=== PATIENT | female | born 1945 | race Caucasian/White ===

== ENCOUNTER 2018-12-17 07:04 | Day surgery (SDC) | payer MEDICARE ==
[2018-12-13 13:47] VITALS: BP 147/78
[2018-12-13 13:50] LABS: BASOPHILS % (AUTO) 0.8 % (0.0-5.0); HEMATOCRIT 45.9 % (36-48); MEAN CORPUSCULAR HEMOGLOBIN 28.7 pg (27.0-33.0); MEAN CORPUSCULAR HGB CONC 33.1 g/dL (32.0-36.0); MEAN CORPUSCULAR VOLUME 86.9 fL (79-99); MONOCYTES % (AUTO) 8.1 % (3.0-13.0); NEUTROPHILS % (AUTO) 70.1 % (40.0-77.0); PLATELET COUNT (AUTO) 246 K/uL (130-400); RED BLOOD CELL COUNT(AUTO) 5.28 MIL/uL (4.00-5.50); RED CELL DISTRIBUTION WIDTH 14.2 % (11.0-15.5); WHITE BLOOD COUNT (AUTO) 6.3 K/uL (4.8-10.8)
[2018-12-13 13:57] LABS: CREATININE 0.7 mg/dL (0.5-1.5); POTASSIUM 4.4 mmol/L (3.5-5.1)
[2018-12-13 14:01] LABS: INR 1.28 (0.85-1.15); PARTIAL THROMBOPLASTIN TIME 44.5 SEC (26.3-35.5); PROTHROMBIN TIME 13.4 SEC (9.6-11.6)
[~2018-12-17] VITALS: Ht 149.9 cm; Wt 89.9 kg
[2018-12-17] VITALS (15 sets, daily range): BP systolic 117–135; BP diastolic 44–88
[~2018-12-17 07:04] MED LIST: DIGO125T87 PO; DRON400T2 PO; DULO60CA63 PO; EMPA25TA PO; LEVO75TA10 PO; METF-444 PO; METO-391 PO; MIRT15TA6 PO; MONT10TA24 PO; OMEP40CA37 PO; RIVA20TA PO; ROSU20TA23 PO
[2018-12-17] MEDS ORDERED: SODIUM CHLORIDE 0.9% 1000ML 1,000 ML IV ONE (07:27)
[2018-12-17] MEDS ORDERED: SUCCINYLCHOLINE CHLORIDE 20 MG/ML 10 ML VIAL ONE (08:54)
[2018-12-17] MEDS ORDERED: PROPOFOL 10 MG/ML 20ML VIAL IV ONE (08:54)
[2018-12-17] MEDS ORDERED: LIDOCAINE HCL-MPF 2% 5ML VIAL ONE (08:55)
--- NOTE | 2018-12-17 09:30 | NUR ---
CARDIOVERSION WITH ANESTHESIA TIME OUT AT 930. CARLO GLASS CRNA, SCOOBY,RN, HOWIE,DONAVAN AND MYSELF IN ROOM. ANESTHESIA START TIME 0932. SHOCK OF [address] FERRARI X1 ATTEMPT AT 0934. PT CONVERTED TO SINUS RHYTHM. PT TOLERATED PROCEDURE WELL. PLS SEE RECOVERY TOOL. ROPER OPERATOR OUT OF ROOM AT 0945. DR. FERRARI TALKED TO PT'S POST PROCEDURE.
--- NOTE | 2018-12-17 09:50 | NUR ---
DIET PER DR. FERRARI, PT GHULAM EAT. Addendum: 12/17/18 at 1133 by YUDY VO RN RN CON'T WHEN FULLY AWAKE.
--- NOTE | 2018-12-17 10:45 | NUR ---
DISCHARGE PT DISCHARGED VIA WHEELCHAIR WITH . PT STABLE. AWAKE ALERT ORIENTED X3. NO COMPLAINTS MADE. NOT IN ANY APPARENT DISTRESS. TOLERATED ORAL FLUIDS, JELLO, CRACKERS WELL. VOIDED PRIOR TO DISCHARGE. DISCHARGE INSTRUCTIONS GIVEN TI , VERBALIZED UNDERSTANDING.
== END 2018-12-17 10:45 | disposition home or self-care (01) ==
LOC: DAH 07:04
PROVIDERS: ATTEND Internal Medicine Cardiovascular Disease
DX: I48.1 Persistent atrial fibrillation (principal); Z85.3 Personal history of malignant neoplasm of breast; Z79.01 Long term (current) use of anticoagulants; Z79.899 Other long term (current) drug therapy; Z68.43 Body mass index [BMI] 50.0-59.9, adult; Z98.890 Other specified postprocedural states
CPT/HCPCS: 36415; 80048; 82948 ×2; 85025; 85610; 85730; 92960; 93005 ×2; A4606; J0330; J2704; J3490; J7030; 99156

== ENCOUNTER 2019-02-19 06:36 | Day surgery (SDC) | payer MEDICARE ==
[2019-02-13 10:43] VITALS: BP 125/60
[2019-02-13 10:56] LABS: BASOPHILS % (AUTO) 0.7 % (0.0-5.0); EOSINOPHILS % (AUTO) 0.9 % (0.0-8.0); HEMATOCRIT 46.5 % (36-48); LYMPHOCYTES % (AUTO) 15.4 % (21.0-51.0); MEAN CORPUSCULAR HEMOGLOBIN 27.9 pg (27.0-33.0); MEAN CORPUSCULAR HGB CONC 32.6 g/dL (32.0-36.0); MEAN CORPUSCULAR VOLUME 85.5 fL (79-99); MONOCYTES % (AUTO) 13.2 % (3.0-13.0); NEUTROPHILS % (AUTO) 69.8 % (40.0-77.0); PLATELET COUNT (AUTO) 241 K/uL (130-400); RED BLOOD CELL COUNT(AUTO) 5.44 MIL/uL (4.00-5.50); WHITE BLOOD COUNT (AUTO) 5.8 K/uL (4.8-10.8)
[2019-02-13 11:03] LABS: CREATININE 0.7 mg/dL (0.5-1.5); POTASSIUM 3.2 mmol/L (3.5-5.1)
[2019-02-13 11:27] LABS: INR 1.19 (0.85-1.15); PARTIAL THROMBOPLASTIN TIME 38.5 SEC (26.3-35.5); PROTHROMBIN TIME 12.5 SEC (9.6-11.6)
--- NOTE | 2019-02-18 09:14 | NUR ---
LABS INFORMED ARNOLD BRENNER OF ABNORMAL POTASSIUM/ INR/PTT. SHE WILL INFORM DR. FERRARI.
--- NOTE | 2019-02-18 16:30 | NUR ---
ILL PT ON PHONE. STATES SHES BEEN HAVING DIARRHEA FOR 2 DAYSD AND WAS GIVEN FLAGYL FROM HER PCP. STILL WISHES TO PROCEED WITH PROCEDURE. INFORMED DR. FERRARI OF PTS SITUATION. HE WILL PROCEED WITH PROCEDURE LONG PT WISHES. PER LABS, NO ORDERS RECEIVED.
[~2019-02-19] VITALS: Ht 149.9 cm; Wt 83.6 kg
[2019-02-19] VITALS (9 sets, daily range): BP systolic 101–139; BP diastolic 44–55
[~2019-02-19 06:36] MED LIST changes: +AMIO400T4 PO; -DULO60CA63 PO; +DULO60CA64 PO; +FURO20TA4 PO; -METO-391 PO; +METO50TA18 PO; +SODIUM CHLORIDE 0.9% 1000ML 1,000 ML IV SCH
[2019-02-19] MEDS ORDERED: PROPOFOL 10 MG/ML 20ML VIAL IV ONE (09:00)
--- NOTE | 2019-02-19 09:06 | NUR ---
CARDIOVERSION CARDIOVERSION WITH ANESTHESIA PERFORMED AT BEDSIDE BY DR. FERRARI. TIME OUT DONE 899 START TIME:904 SHOCK TIME: 905 EXTERNAL SHOCK 200 JOULES DELIVERED FINISH PROCEDURE TIME 906 RECOVERY STARTED 906 PATIENT TOLERATED PROCEDURE WELL WITH NO ADVERSE REACTIONS, PATIENT CONVERTED, VS STABLE. DR. WHITMAN LEFT ROOM AT 0914, DR. FERRARI LEFT ROOM AT 0924. DR. FERRARI SPOKE TO PATIENT SPOUSE ABOUT OUTCOME OF PROCEDURE, PT WILL BE DISCHARGE WHEN FULLY AWAKE AND STABLE.
--- NOTE | 2019-02-19 09:50 | NUR ---
DC DC INSTRUCTIONS GIVEN TO PT SPOUSE, INSTRUCTED TO F/U WITH DR. FERRARI. TO CONTINUE HOME MEDS. PT FULLY AWAKE , NO DISTRESS NOTED. DENIES ANY PAIN OR DISCOMFORTS
--- NOTE | 2019-02-19 10:00 | NUR ---
DC PT DC HOME VIA WC , NO DISTRESS NOTED. DENIES ANY PAIN OR DISCOMFORTS. ACCOMPANIED BY SPOUSE
== END 2019-02-19 10:00 | disposition home or self-care (01) ==
LOC: DAH 06:36
PROVIDERS: ATTEND Internal Medicine Cardiovascular Disease
DX: I48.1 Persistent atrial fibrillation (principal); I10 Essential (primary) hypertension; E66.9 Obesity, unspecified; M19.90 Unspecified osteoarthritis, unspecified site; Z88.8 Allergy status to other drugs, medicaments and biological substances; Z79.899 Other long term (current) drug therapy; Z79.84 Long term (current) use of oral hypoglycemic drugs; Z85.3 Personal history of malignant neoplasm of breast; Z79.01 Long term (current) use of anticoagulants; Z68.37 Body mass index [BMI] 37.0-37.9, adult; Z72.89 Other problems related to lifestyle; Z83.3 Family history of diabetes mellitus; Z82.3 Family history of stroke
CPT/HCPCS: 36415; 80048; 82948; 85025; 85610; 85730; 92960; 93005 ×2; A4606 ×2; J2704; J7030; 99156